=== PATIENT | male | born 1960 | race Caucasian/White ===

== ENCOUNTER 2023-06-23 10:56 | Emergency (ER) | payer MEDICAID, OTHER ==
[~2023-06-23] VITALS: Wt 77.1 kg
[2023-06-23] MEDS ORDERED: CEPHALEXIN500 M1 PO (11:41)
== END 2023-06-23 12:05 | disposition home or self-care (01) ==
LOC: ED 10:56
DX: L03.316 Cellulitis of umbilicus (principal); Z88.2 Allergy status to sulfonamides; Z91.040 Latex allergy status; Z98.890 Other specified postprocedural states